=== PATIENT | male | born 1935 | race Caucasian/White ===

== ENCOUNTER → 2018-07-28 | Outpatient (CLI) | payer MEDICARE, OTHER ==
[2016-11-12 22:25] VITALS: BP 136/79
[~2018-07-28] MED LIST: ALFU10TA23 PO; ASCO100065 PO; CHOL100013 PO; CYAN10005 PO; HYDR-923 PO; MIDO5TAB PO; MULT1CAP15 PO; OMEG1CAP38 PO; OMEP20CA9 PO; VARD10TA4 PO
[2018-07-28 07:28] LABS: BASO % 1 % (0-3); EOS % 1 % (0-3); HEMATOCRIT 40.3 % (39.0-53.0); HEMOGLOBIN 13.7 g/dL (13.0-17.5); LYMPH # 2.2 x10^3/uL (1.0-4.8); LYMPH % 38 % (24-48); MEAN CORPUSCULAR HEMOGLOBIN 33 pg (25-35); MEAN CORPUSCULAR HGB CONC 34 g/dL (31-37); MEAN CORPUSCULAR VOLUME 98 fL (79-100); MONO # 0.4 x10^3/uL (0.0-1.1); MONO % 7 % (0-9); NEUT % 53 % (31-73); PLATELET COUNT 168 x10^3/uL (140-400); RED BLOOD COUNT 4.09 x10^6/uL (4.30-5.70); RED CELL DISTRIBUTION WIDTH 14.3 % (11.5-14.5); WHITE BLOOD COUNT 5.7 x10^3/uL (4.0-11.0)
[2018-07-28 07:46] LABS: ALBUMIN 3.8 g/dL (3.4-5.0); ALBUMIN/GLOBULIN RATIO 1.1 (1.0-1.7); CREATININE 1.4 mg/dL (0.7-1.3); GFR 48.6; POTASSIUM 3.9 mmol/L (3.5-5.1); TOTAL BILIRUBIN 0.5 mg/dL (0.2-1.0); TOTAL PROTEIN 7.4 g/dL (6.4-8.2)
== END | disposition home or self-care (01) ==
LOC: LAB 07:09
PROVIDERS: ATTEND Internal Medicine Hematology & Oncology
DX: C15.9 Malignant neoplasm of esophagus, unspecified (principal)
CPT/HCPCS: 36415; 80053; 85025

== ENCOUNTER → 2018-09-27 | Outpatient (CLI) | payer MEDICARE, OTHER ==
[2016-11-12 22:25] VITALS: BP 136/79
[~2018-09-27] MED LIST changes: +IOHEXOL 240 MG/ML 50ML VIAL. ONE; +IOHEXOL 300 MG/ML 75 ML VIAL. IV ONE
--- NOTE | 2018-09-27 15:00 | RAD ---
CT HEAD INDICATION: Visual disturbance COMPARISON: None Available. Exposure: One or more of the following individualized dose reduction techniques were utilized for this examination: 1. Automated exposure control 2. Adjustment of the mA and/or kV according to patient size 3. Use of iterative reconstruction technique TECHNIQUE: 5 mm contiguous axial images were obtained from the skull base to the vertex in both bone and soft tissue algorithm. FINDINGS: Mild bilateral periventricular white matter hypodensity likely chronic small vessel ischemic disease. No evidence of acute intracranial hemorrhage. No extra-axial fluid collections. No mass effect or midline shift. Ventricular size is appropriate. Basal cisterns are patent. No fractures identified.Garcia-white differentiation is preserved.Globes and orbits are within normal limits. Paranasal sinuses and mastoid air cells are clear. IMPRESSION: No acute intracranial findings. Electronically signed by: Lew Lomeli MD (09/27/2018 2:56 PM) [facility]
--- NOTE | 2018-09-27 15:31 | RAD ---
Examination: CT of the abdomen pelvis with oral and IV contrast HISTORY: History of esophageal malignancy COMPARISON: 08/19/2016 TECHNIQUE: Axial CT images of the abdomen pelvis were performed with oral and IV contrast. Coronal and sagittal reformats are performed. Exposure: One or more of the following individualized dose reduction techniques were utilized for this examination: 1. Automated exposure control 2. Adjustment of the mA and/or kV according to patient size 3. Use of iterative reconstruction technique FINDINGS: Bibasilar lung emphysematous changes identified in the lungs. No evidence of free air identified in the abdomen. Examination is limited due to lack of significant intra-abdominal fat. The visualized liver, spleen, adrenals grossly appears unremarkable. Stomach is mildly distended. The small bowel is nondilated. Few probable fluid distended loops of bowel identified abutting the right abdominal wall which appears similar to prior exam however examination is very limited as it is not enough contrast is within these bowel loops. The bilateral kidneys enhance symmetrically. There is a large intrarenal collecting system calculus measuring 1.2 cm the left renal pelvis similar to prior exam. Diffuse moderate thickened appearance of the urinary bladder wall. Moderate enlarged prostate gland Moderate aortic atherosclerosis. No significant free fluid identified in the pelvis. Feces and gas noted in the colon. Prior surgical changes identified in the mid transverse colon Numerous colon diverticula identified. Moderate degenerative changes lumbar spine. IMPRESSION: 1. Unchanged 1.2 cm left intrarenal collecting system calculus. 2. Diffuse circumferential thickened appearance of the urinary bladder wall with enlarged appearing prostate gland again identified. 3. Multiple colon diverticula. Electronically signed by: Lew Lomeli MD (09/27/2018 3:26 PM) [facility]
== END | disposition home or self-care (01) ==
LOC: CT 12:59
PROVIDERS: ATTEND Family Medicine
DX: N20.0 Calculus of kidney (principal); K57.30 Diverticulosis of large intestine without perforation or abscess without bleeding; N32.89 Other specified disorders of bladder; I70.0 Atherosclerosis of aorta; N40.0 Benign prostatic hyperplasia without lower urinary tract symptoms; H53.9 Unspecified visual disturbance; K31.89 Other diseases of stomach and duodenum; Z85.01 Personal history of malignant neoplasm of esophagus; Z87.891 Personal history of nicotine dependence
CPT/HCPCS: 70450; 74177; Q9966; Q9967

== ENCOUNTER → 2019-11-20 | Outpatient (CLI) | payer MEDICARE, OTHER ==
[2016-11-12 22:25] VITALS: BP 136/79
[~2019-11-20] MED LIST changes: +CONTRAST GIVEN MC PRN; +CYAN-25 PO; -CYAN10005 PO; +IOHEXOL 240 MG/ML 50ML VIAL. PO ONE; -MIDO5TAB PO; +MIDO5TAB4 PO; +OMEP20CA16 PO; -OMEP20CA9 PO
--- NOTE | 2019-11-20 16:55 | RAD ---
EXAM: CT Abdomen with IV contrast INDICATION: Epigastric pain. History of esophageal cancer with reconstruction. TECHNIQUE: Multi-detector row CT images were acquired from the lung bases through the abdomen with the use of IV contrast. Sagittal and coronal images were acquired from the transaxial data. All CT scans performed at this facility utilize dose optimization techniques as appropriate to the exam, including the following: Automated exposure control and adjustment of the mA and/or KV according to patient size (this includes techniques or standardized protocols for targeted exams where dose is indication/reason for exam). IV CONTRAST: Administered ORAL CONTRAST: Administered COMPARISON: CT abdomen and pelvis with IV contrast of 09/27/2018 FINDINGS: LOWER CHEST: Stable appearance to the patient's neoesophagus. No evidence of a leak. LIVER: Unremarkable BILIARY SYSTEM: Gallbladder surgically absent. Bile ducts are not dilated. PANCREAS: Unremarkable SPLEEN: Unremarkable ADRENALS: Unremarkable KIDNEYS & URETERS: 2 cm inferior pole left renal calculus. No hydronephrosis. Mild bilateral renal cortical scarring. GASTROINTESTINAL: No evidence of bowel obstruction, perforation or acute inflammation. Appendix is not well seen. MESENTERY/PERITONEUM/RETROPERITONEUM: Unremarkable VASCULAR: Extensive arterial calcifications in abdominal aorta with ectasia of the aorta to 2.7 cm AP diameter, unchanged from prior. LYMPH NODES: No adenopathy OSSEOUS & SOFT TISSUES: Unremarkable IMPRESSION: No acute findings in the abdomen to explain epigastric pain. In particular, the neoesophagus appears unremarkable. Electronically signed by: Colin Peterson MD (11/20/2019 4:52 PM) [id number]
== END | disposition home or self-care (01) ==
LOC: CT 10:04
PROVIDERS: ATTEND Family Medicine
DX: I77.811 Abdominal aortic ectasia (principal); N20.0 Calculus of kidney; Z90.49 Acquired absence of other specified parts of digestive tract
CPT/HCPCS: 74160; Q9966; Q9967

== ENCOUNTER 2019-12-16 11:25 | Emergency (ER) | payer MEDICARE, OTHER ==
[~2019-12-16] VITALS: Ht 188 cm; Wt 63.0 kg
[~2019-12-16 11:25] MED LIST changes: -CONTRAST GIVEN MC PRN; -IOHEXOL 240 MG/ML 50ML VIAL. ONE; -IOHEXOL 240 MG/ML 50ML VIAL. PO ONE; -IOHEXOL 300 MG/ML 75 ML VIAL. IV ONE
--- NOTE | 2019-12-16 11:49 | PHYS DOC ---
Past History Past Medical History: Cancer, Diverticulitis, Kidney Stones Past Surgical History: Cancer Surgery, Cholecystectomy, Other Smoking: Cigar Alcohol Use: None Drug Use: None Adult General Chief Complaint Chief Complaint: Syncope, fall HPI HPI 84-year-old male presents after syncopal episode and fall to the ground. He was out shopping with his and began to feel like he was getting more weak. He attempted to leave the store and go to the car when he passed out just outside the door. Patient does not believe he was unconscious for very long. He woke up on the ground with people talking to him and trying to help him up. He did hit the back of his head. He has a mild global headache. There is a small skin tear in his scalp as well as his right forearm. Patient states he was feeling pretty good prior to the shopping trip. Denies chest pain, shortness of breath, fever, chills. He has not had a syncopal episode in the past. No recent changes in medications. He is not on any antiplatelets or anticoagulants. Review of Systems Review of Systems Constitutional: Denies fever or chills [] Eyes: Denies change in visual acuity, redness, or eye pain [] HENT: Denies nasal congestion or sore throat [] Respiratory: Denies cough or shortness of breath [] Cardiovascular: No additional information not addressed in HPI [] GI: Denies abdominal pain, nausea, vomiting, bloody stools or diarrhea [] : Denies dysuria or hematuria [] Musculoskeletal: Denies back pain or joint pain [] Integument: Skin tear scalp, right forearm [] Neurologic: headache. Denies focal weakness or sensory changes [] Endocrine: Denies polyuria or polydipsia [] All other systems were reviewed and found to be within normal limits, except as documented in this note. Allergies Allergies Allergies Coded Allergies Type Severity Reaction Last Updated Verified No Known Drug Allergies 11/17/13 No Physical Exam Physical Exam Constitutional: Well developed, well nourished, no acute distress, non-toxic appearance. [] HENT: Normocephalic, atraumatic, bilateral external ears normal, oropharynx moist, no oral exudates, nose normal. [] Eyes: PERRLA, EOMI, conjunctiva normal, no discharge. [] Neck: Normal range of motion, no tenderness, supple, no stridor. [] Cardiovascular: Heart rate regular rhythm, no murmur [] Lungs & Thorax: Bilateral breath sounds clear to auscultation [] Abdomen: Bowel sounds normal, soft, no tenderness, no masses, no pulsatile masses. [] Skin: Small skin tear of the scalp. 4 cm x 1 cm superficial skin tear of the right forearm. [] Back: No tenderness, no CVA tenderness. [] Extremities: No tenderness, no cyanosis, no clubbing, ROM intact, no edema. [] Neurologic: Alert and oriented X 3, normal motor function, normal sensory function, no focal deficits noted. [] Psychologic: Affect normal, judgement normal, mood normal. [] EKG EKG Sinus rhythm, rate 67, normal axis, no ST elevations or depressions. PVC. [] Radiology/Procedures Radiology/Procedures [] Impressions: CT head without contrast dated 12/16/2019. Comparison made to 09/27/2018. CLINICAL INDICATION: Pain after fall. TECHNIQUE: Contiguous axial imaging the head was performed from skull base to vertex. No contrast administered. One or more of the following individualized dose reduction techniques were utilized for this examination: 1. Automated exposure control 2. Adjustment of the mA and/or kV according to patient size 3. Use of iterative reconstruction technique. FINDINGS: Ventricles and sulci are mildly prominent for age. No midline shift or mass effect. Mild patchy low density in the deep/subcortical periventricular white matter. No hemorrhage or extra-axial collection. Posterior fossa and brainstem unremarkable. Visualized paranasal sinuses and mastoid air cells are clear. No apparent calvarial abnormality. IMPRESSION: 1. No evidence of acute intracranial hemorrhage or mass. 2. Mild chronic small vessel ischemic changes and atrophy. Electronically signed by: Cole Salter MD (12/16/2019 12:41 PM) [facility] DICTATED AND SIGNED BY: COLE SALTER MD DATE: 12/16/19 1241 CC: JUDY DOVE DO; JER PINON MD ~ CHEST AP ONLY History: Syncope Comparison: June 07, 2015 Findings: Single view of the chest is submitted. There is again emphysema. There is no significant dependent pleural fluid, pneumothorax, lobar consolidation. Heart size is stable, within normal limits. Impression: 1. There is emphysema. No significant infiltrate is identified by radiograph. Electronically signed by: Hayden Aaron MD (12/16/2019 12:15 PM) [facility] DICTATED AND SIGNED BY: HAYDEN AARON MD DATE: 12/16/19 1215 CC: JUDY DOVE DO; JER PINON MD ~ Course & Med Decision Making Course & Med Decision Making Pertinent Labs and Imaging studies reviewed. (See chart for details) The patient's labs are significant for mild anemia of 11.9 and a creatinine 1.4. The patient's chest x-ray is negative for pneumonia. He does have emphysema. He has not been coughing in the emergency room. This does not appear to be an exacerbation of COPD. It is likely that his condition contributed to his passing out. His EKG is unremarkable. The patient's urinalysis is negative for infection. I am not certain what caused him to pass out, but I do not see any currently life-threatening diagnoses. He is stable for discharge at this time. He will follow-up with his primary care physician. [] Dragon Disclaimer Dragon Disclaimer This electronic medical record was generated, in whole or in part, using a voice recognition dictation system. Departure Departure: Impression: Primary Impression: Syncope and collapse Disposition: HOME, SELF-CARE Condition: IMPROVED Referrals: JER PINON MD (PCP) Patient Instructions: Syncope, [id number] JUDY DOVE DO Dec 16, 2019 11:49
[2019-12-16 12:02] VITALS: BP 121/67
--- NOTE | 2019-12-16 12:19 | RAD ---
CHEST AP ONLY History: Syncope Comparison: June 07, 2015 Findings: Single view of the chest is submitted. There is again emphysema. There is no significant dependent pleural fluid, pneumothorax, lobar consolidation. Heart size is stable, within normal limits. Impression: 1. There is emphysema. No significant infiltrate is identified by radiograph. Electronically signed by: Sid Keyes MD (12/16/2019 12:15 PM) [facility]
[2019-12-16 12:42] LABS: BASO % 0 % (0-3); EOS % 0 % (0-3); HEMATOCRIT 35.2 % (39.0-53.0); HEMOGLOBIN 11.8 g/dL (13.0-17.5); LYMPH # 0.7 x10^3/uL (1.0-4.8); LYMPH % 15 % (24-48); MEAN CORPUSCULAR HEMOGLOBIN 34 pg (25-35); MEAN CORPUSCULAR HGB CONC 34 g/dL (31-37); MEAN CORPUSCULAR VOLUME 101 fL (79-100); MONO # 0.3 x10^3/uL (0.0-1.1); MONO % 7 % (0-9); NEUT # 3.7 x10^3uL (1.8-7.7); NEUT % 77 % (31-73); PLATELET COUNT 129 x10^3/uL (140-400); RED BLOOD COUNT 3.49 x10^6/uL (4.30-5.70); RED CELL DISTRIBUTION WIDTH 14.7 % (11.5-14.5); WHITE BLOOD COUNT 4.8 x10^3/uL (4.0-11.0)
--- NOTE | 2019-12-16 12:44 | RAD ---
CT head without contrast dated 12/16/2019. Comparison made to 09/27/2018. CLINICAL INDICATION: Pain after fall. TECHNIQUE: Contiguous axial imaging the head was performed from skull base to vertex. No contrast administered. One or more of the following individualized dose reduction techniques were utilized for this examination: 1. Automated exposure control 2. Adjustment of the mA and/or kV according to patient size 3. Use of iterative reconstruction technique. FINDINGS: Ventricles and sulci are mildly prominent for age. No midline shift or mass effect. Mild patchy low density in the deep/subcortical periventricular white matter. No hemorrhage or extra-axial collection. Posterior fossa and brainstem unremarkable. Visualized paranasal sinuses and mastoid air cells are clear. No apparent calvarial abnormality. IMPRESSION: 1. No evidence of acute intracranial hemorrhage or mass. 2. Mild chronic small vessel ischemic changes and atrophy. Electronically signed by: Cole Salter MD (12/16/2019 12:41 PM) [facility]
[2019-12-16 12:51] LABS: CREATININE 1.4 mg/dL (0.7-1.3); GFR 48.4; POTASSIUM 4.5 mmol/L (3.5-5.1)
[2019-12-16 12:58] LABS: ALBUMIN 3.5 g/dL (3.4-5.0); ALBUMIN/GLOBULIN RATIO 1.1 (1.0-1.7); TOTAL BILIRUBIN 0.4 mg/dL (0.2-1.0); TOTAL PROTEIN 6.6 g/dL (6.4-8.2)
[2019-12-16] MEDS ORDERED: IV NORMAL SALINE 1,000ML 1,000 ML IV ONE (13:30)
[2019-12-16 14:04] LABS: AMORPHOUS SEDIMENT,UR PRESENT /HPF; BACTERIA,URINE 0 /HPF (0-FEW); BILIRUBIN,URINE NEG (NEG); CLARITY,URINE HAZY; COLOR,URINE YELLOW; GLUCOSE,URINE NEG (NEG); HYALINE CASTS, URINE FEW /HPF; NITRITE,URINE NEG (NEG); SQUAMOUS EPITHELIAL CELL,UR FEW /LPF; UROBILINOGEN,URINE 0.2 mg/dL (0.2 mg/dL); WBC,URINE OCC /HPF (0-4)
--- NOTE | 2019-12-16 20:08 | EKG ---
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
== END 2019-12-16 14:31 | disposition home or self-care (01) ==
LOC: ER 11:25
DX: S51.811A Laceration without foreign body of right forearm, initial encounter (principal); S01.01XA Laceration without foreign body of scalp, initial encounter; R55 Syncope and collapse; F17.210 Nicotine dependence, cigarettes, uncomplicated; Z87.442 Personal history of urinary calculi; W18.39XA Other fall on same level, initial encounter; Y93.89 Activity, other specified; Y92.89 Other specified places as the place of occurrence of the external cause; Y99.8 Other external cause status
CPT/HCPCS: 36415; 70450; 71045; 80053; 81001; 84484; 85025; 93005; 96360; 99285-25; J7030

== ENCOUNTER → 2020-07-16 | Outpatient (CLI) | payer MEDICARE, OTHER ==
--- NOTE | 2020-07-16 13:18 | RAD ---
EXAM: Lumbar spine CT without contrast. HISTORY: Severe pain. TECHNIQUE: Computed tomographic images of the lumbar spine were obtained without contrast. Multiplanar reformatting was performed. *One or more of the following individualized dose reduction techniques were utilized for this examination: 1. Automated exposure control. 2. Adjustment of the mA and/or kV according to patient size. 3. Use of iterative reconstruction technique. COMPARISON: None. FINDINGS: There is no significant lumbar scoliosis. There is multilevel endplate remodeling. There are small Schmorl's nodes within the inferior endplates of L1 L4. There is disc space narrowing and partial bony bridging across the disc space at L5-S1. There is suspected bone demineralization. There is no fracture or suspicious osseous lesion. There is pulmonary emphysema. There is a small hiatal hernia. There is suspected left basilar pleural parenchymal scarring. There is a large nonshadowing stone within the inferior left kidney measuring 2.3 cm. There are additional punctate bilateral renal stones. There is no evidence of hydronephrosis. There is a 4 mm hypodense lesion within the inferior left kidney which may be a hemorrhagic cyst. There is ectasia of atherosclerotic abdominal aorta, measuring 2.6 cm in caliber. There is distal colonic diverticulosis. There is degenerative subchondral sclerosis and vacuum phenomenon involving the sacroiliac joints. At L1-L2, there is mild right facet arthropathy. There is no stenosis. At L2-L3, there is a disc bulge and endplate remodeling. There is mild/moderate right and moderate left facet arthropathy. There is mild bilateral foraminal stenosis. At L3-L4, there is a disc bulge and endplate remodeling. There is minimal bilateral facet arthropathy. There is mild bilateral foraminal stenosis. At L4-L5, there is a disc bulge and endplate remodeling. There is mild bilateral foraminal stenosis. At L5-S1, there is endplate osteophytosis and partial bridging across the disc space. There is mild left greater than right foraminal stenosis. IMPRESSION: 1. Multilevel degenerative change involving the lumbar spine, described in detail above. This is associated with mild foraminal stenosis at the aforementioned levels. 2. No acute osseous finding. 3. Left greater than right nephrolithiasis. Electronically signed by: Melba Sauceda MD (07/16/2020 1:15 PM) [place] [id number]
== END ==
LOC: CT 07-15 14:18
PROVIDERS: ATTEND Family Medicine
DX: M47.816 Spondylosis without myelopathy or radiculopathy, lumbar region (principal); K57.30 Diverticulosis of large intestine without perforation or abscess without bleeding; N20.0 Calculus of kidney; K44.9 Diaphragmatic hernia without obstruction or gangrene; J43.8 Other emphysema; M51.46 Schmorl's nodes, lumbar region; M48.07 Spinal stenosis, lumbosacral region; M41.86 Other forms of scoliosis, lumbar region
CPT/HCPCS: 72131

== ENCOUNTER → 2021-05-22 | Outpatient (CLI) | payer MEDICARE, OTHER ==
--- NOTE | 2021-05-22 14:43 | RAD ---
CT ABDOMEN+PELVIS WO dated 05/22/2021 1:05 PM Indication:Reason: generalized abdomen pain, UTI / Spl. Instructions: / History: Comparison: CT 12/08/2019 and 10/07/2018. Technique: Helical noncontrast images were performed. One or more of the following individualized dose reduction techniques were utilized for this examinat ion: 1. Automated exposure control 2. Adjustment of the mA and/or kV according to patient size 3. Use of iterative reconstruction technique Findings: There is probably a trace of pleural fluid on the left. Mild atelectasis is seen in the lower lobes a nd there is also some emphysema. There is evidence of a hiatal hernia. The liver and spleen are homog eneous in density and normal in configuration. Evaluation of the solid organs is somewhat limited by lack of IV contrast. The kidneys show no apparent mass or obstruction. A small calcification on the r ight is thought to be arterial. There is a staghorn type calculus in the lower pole of the left kidne y. This has greatest transverse dimension of about 2.2 cm in craniocaudal dimension of 1.6 cm. Smalle r callus cases are seen in the lower pole of the left kidney. The adrenal glands are not enlarged. No pancreatic abnormality is seen. Evaluation is somewhat limited by noncontrast technique and lack of intra-abdominal fat. There is no apparent retroperitoneal or mesenteric adenopathy. No abdominal mass or inflammatory process is seen. Postoperative changes of the GI tract are seen in the left upper qu adrant there is moderate stool without apparent obstruction. Images through the pelvis show no apparent abnormality of the distal ureters. The bladder was poorly distended but otherwise appears grossly normal. There are apparently some calculi in the bladder lume n. At least 3 stones are present. The largest measures about 7 mm. These are most apparent in the rig ht bladder lumen. No pelvic or inguinal adenopathy is seen. There is no apparent pelvic mass or infla mmatory process. IMPRESSION: There are large left renal calculi and there are also some bladder stones. Bladder stones are apparen tly new since previous CT of 09/27/2018. Electronically signed by: Bari Bill Jr., MD (05/22/2021 2:40 PM) [id number]
== END ==
LOC: CT 12:48
PROVIDERS: ATTEND Family Medicine
DX: N20.0 Calculus of kidney (principal); N21.0 Calculus in bladder; J98.11 Atelectasis; J43.9 Emphysema, unspecified; K44.9 Diaphragmatic hernia without obstruction or gangrene; N39.0 Urinary tract infection, site not specified; R10.9 Unspecified abdominal pain
CPT/HCPCS: 74176